=== PATIENT | female | born 1985 | race Two or more races ===

== ENCOUNTER 2019-05-07 05:24 | Day surgery (SDC) | payer OTHER ==
[2019-04-30 09:40] LABS: HEMATOCRIT 39.2 % (36.0-47.0); HEMOGLOBIN 12.8 g/dL (12.0-15.5); MEAN CORPUSCULAR HGB CONC 32.7 g/dL (32.0-36.0); MEAN CORPUSCULAR VOLUME 80 fl (80-97); PLATELET COUNT 330 10^3/uL (150-450); RED BLOOD COUNT 4.92 10^6/uL (3.72-5.28); RED CELL DISTRIBUTION WIDTH 16.5 % (11.5-14.0); WHITE BLOOD COUNT 6.9 10^3/uL (4.0-10.5)
[2019-04-30 10:02] LABS: ANION GAP 9 (5-19); BLOOD UREA NITROGEN 7 mg/dL (7-20); CALCIUM 9.7 mg/dL (8.4-10.2); CARBON DIOXIDE 28 mmol/L (22-30); CHLORIDE 103 mmol/L (98-107); GLUCOSE 84 mg/dL (75-110); POTASSIUM 4.6 mmol/L (3.6-5.0)
--- NOTE | 2019-04-30 18:49 | EKG REPORT ---
SEVERITY:- NORMAL ECG - SINUS RHYTHM : Confirmed by: Elroy Elder MD 30-Apr-2019 18:48:42
[~2019-05-07 05:24] MED LIST: CEFAZOLIN 1 GM/D5W RTU 1 GM/50 ML RTUPB IV ONE; CEFAZOLIN 1 GM/D5W RTU 1 GM/50 ML RTUPB IV PRN
[2019-05-07 06:18] LABS: APPEARANCE,URINE SLIGHTLY-CLOUDY; BILIRUBIN,URINE NEGATIVE (NEGATIVE); COLOR,URINE YELLOW; GLUCOSE, URINE NEGATIVE (NEGATIVE); KETONES,URINE TRACE mg/dL (NEGATIVE); LEUKOCYTE ESTERASE,URINE NEGATIVE (NEGATIVE); NITRITE,URINE NEGATIVE (NEGATIVE); PROTEIN,URINE NEGATIVE (NEGATIVE); URINE SPECIFIC GRAVITY 1.024; UROBILINOGEN,URINE NEGATIVE mg/dL (<2.0)
[2019-05-07] MEDS ORDERED: LIDOCAINE 2% INJ-PF (100 MG/5 ML) SYRINGE ONE (07:02)
[2019-05-07] MEDS ORDERED: FENTANYL CITRATE INJ/PF 100 MCG/2 ML AMPUL ONE (07:02)
[2019-05-07] MEDS ORDERED: MIDAZOLAM 2 MG/2 ML INJ ONE (07:02)
[2019-05-07] MEDS ORDERED: PROPOFOL INJ 200 MG/20 ML VIAL IV ONE (07:03)
[2019-05-07] MEDS ORDERED: FENTANYL CITRATE INJ/PF 100 MCG/2 ML AMPUL IV PRN ×3 (07:54)
[2019-05-07] MEDS ORDERED: PROMETHAZINE HCL INJ 25 MG/1 ML VIAL IV PRN ×2 (07:54)
[2019-05-07] MEDS ORDERED: MORPHINE SULFATE 10 MG/ML INJ INJ PRN (08:07)
[2019-05-07] MEDS ORDERED: PROMETHAZINE HCL INJ 25 MG/1 ML VIAL IM PRN (08:07)
[2019-05-07] MEDS ORDERED: KETOROLAC TROMETHAMINE INJ/PF 30 MG/1 ML SDV ONE (08:20)
[2019-05-07] MEDS ORDERED: ACETAMINOPHEN 1,000 MG/100 ML RTUPB IV ONE (08:20)
[2019-05-07] MEDS: FENTANYL CITRATE INJ/PF 100 MCG/2 ML AMPUL ONE ×2 (08:24→08:29)
[2019-05-07] MEDS ORDERED: MEPERIDINE HCL/PF INJ 25 MG/1 ML DISP.SYRIN ONE (08:59)
--- NOTE | 2019-05-07 09:25 | OPERATIVE REPORT E ---
Operative Report NAME: JOVI AMIN : 1985 AGE: 34Y DATE OF SURGERY: 05/07/2019 ROOM: PREOPERATIVE DIAGNOSIS: Desires permanent sterilization. POSTOPERATIVE DIAGNOSIS: Desires permanent sterilization. PROCEDURE: Laparoscopic Filshie clip sterilization x2. SURGEON: OUSMANE CRONIN M.D. COMPLICATIONS: None. ANESTHESIA: General endotracheal. ESTIMATED BLOOD LOSS: Less than 5 mL. FINDINGS: Normal uterus, tubes, ovaries, and gallbladder. INDICATIONS FOR PROCEDURE: The patient desired permanent sterilization, understanding the risk of failure and subsequent , approximately 1 in 150 over 10 years. She is well aware of *------* and reversible methods. PROCEDURE: The patient was taken to the operating room and placed in the modified lithotomy position. After adequate anesthesia was ascertained, the bladder was drained in a sterile technique after surgical timeout was performed and antibiotics had been given. EUA completed, surgeon regloved, and through an infraumbilical incision, subcutaneous fat and fascia, the peritoneum was entered without difficulty. An open laparoscopy ensued using origin cannula. Gas was instilled. Above noted findings were appreciated. A second incision was made 3 fingerbreadths closer to the symphysis pubis under direct visualization. A 5 mm port was placed. Filshie clips were placed immediately adjacent x1 on each tube approximately 1 cm from the uterine fundus with adequate tube noted within the ends of the clip and the clip extending over the entire width of the tube. *------*. Survey of the abdomen completed. Photographs were taken. Gas was removed. The fascial stitch on the umbilicus was closed with a 2-0 Vicryl stitch and subcuticular stitch of 3-0 chromic was placed on both incisions. DICTATING PHYSICIAN: OUSMANE CRONIN M.D. [id number] PHY#: [id number] ID: [id number] JOB#: [id number] ACCT: [id number] cc:OUSMANE CRONIN M.D. >
[2019-05-07] MEDS ORDERED: OXYCODONE-ACETAMINOPHEN 5-325 MG TABLET ONE ×2 (09:32→09:50)
[2019-05-07] MEDS ORDERED: ONDANSETRON HCL INJ/PF 4 MG/2 ML SDV ONE (09:33)
[2019-05-07] MEDS ORDERED: DEXAMETHASONE SOD PHOSPHATE INJ 4 MG/1 ML VIAL ONE (09:33)
[2019-05-07] MEDS: OXYCODONE-ACETAMINOPHEN 5-325 MG TABLET PO PRN ×2 (09:35→09:52)
[2019-05-07 10:59] VITALS: BP 116/83
[2019-05-07] MEDS ORDERED: IBUPROFEN 800 MG TABLET PO SCH (14:00)
== END 2019-05-07 10:50 | disposition home or self-care (01) ==
LOC: OROUT 05:24
PROVIDERS: ATTEND Specialist
DX: Z30.2 Encounter for sterilization (principal)
CPT/HCPCS: 93005; 86900; 86901; 36415 ×2; 86850; 85027; 81025; 80048; 81001; 93010; 58671; J2250; J0690; J1100; J3010; J2001; J2175; J1885; J2405; J2704; J0131; 851